=== PATIENT | male | born 1980 | race Caucasian/White ===

== ENCOUNTER 2017-11-22 18:05 | Emergency (ER) | payer OTHER ==
[~2017-11-22] VITALS: Ht 170.2 cm; Wt 93.5 kg
[2017-11-22 18:10] VITALS: BP 119/62
--- NOTE | 2017-11-22 18:13 | NUR ---
PATIENT PRESENTS TO ED WITH FEVER, SORE THROAT, COUGH X 1DAY, PAIN 5/10 HX-NONE MED-NONE, DENIES N/V/D; SKIN IS PINK/WARM/DRY; AAOX4 WITH EVEN AND STEADY GAIT; LUNGS CLEAR BL; HR EVEN AND REGULAR; PT DENIES ANY FEVER, CP, SOB, OR COUGH AT THIS TIME; PATIENT STATES PAIN OF 5/10 AT THIS TIME; VSS; PATIENT POSITIONED FOR COMFORT; ER MD MADE AWARE OF PT STATUS.
--- NOTE | 2017-11-22 18:15 | NUR ---
PT AMBULATED TO [facility]
[2017-11-22 18:45] VITALS: BP 109/73
--- NOTE | 2017-11-22 18:45 | NUR ---
Patient discharged with v/s stable. Written and verbal after care instructions given and explained. Patient alert, oriented and verbalized understanding of instructions. Ambulatory with steady gait. All questions addressed prior to discharge. ID band removed. Patient advised to follow up with PMD. Rx of IBUPROFEN, TESLATIA PERLES given. Patient educated on indication of medication including possible reaction and side effects. Opportunity to ask questions provided and answered.
== END 2017-11-22 18:45 | disposition home or self-care (01) ==
LOC: MED 18:05
DX: B34.9 Viral infection, unspecified (principal); M54.5 Low back pain
CPT/HCPCS: 99283